=== PATIENT | male | born 1975 | race Caucasian/White ===

== ENCOUNTER 2018-03-19 07:35 | Inpatient (IN) | payer OTHER ==
[2018-03-19] VITALS (13 sets, daily range): BP systolic 126–186; BP diastolic 77–104
[~2018-03-19] VITALS: Ht 180.3 cm; Wt 118.0 kg
[2018-03-19] MEDS ORDERED: ondansetron/PF 4mg/2ml inj IV ONE (08:05)
[2018-03-19] MEDS: morphine 4 MG/ML inj SYRINge IV PRN ×2 (08:11→08:50)
[2018-03-19 08:35] LABS: BASOPHILS % (AUTO) 0.1 % (0-1); EOSINOPHILS # (AUTO) 0.1 X10'3 (0-0.9); HEMATOCRIT 41.4 % (42.0-52.0); HEMOGLOBIN 14.3 g/dl (14.0-17.9); LYMPHOCYTES # (AUTO) 1.1 X10'3 (1.1-4.8); LYMPHOCYTES % (AUTO) 13.2 % (21-51); MEAN CORPUSCULAR HEMOGLOBIN 29.9 PG (27.0-31.0); MEAN CORPUSCULAR HGB CONC 34.6 % (33.0-36.5); MEAN CORPUSCULAR VOLUME 86.4 FL (78-98); MEAN PLATELET VOLUME 8.1 FL (7.4-10.4); MONOCYTES # (AUTO) 0.3 X10'3 (0-0.9); MONOCYTES % (AUTO) 3.4 % (2-12); NEUTROPHILS # (AUTO) 6.9 X10'3 (1.8-7.7); NEUTROPHILS % (AUTO) 82.3 % (42-75); PLATELET COUNT 173 X10'3 (140-440); RED CELL DISTRIBUTION WIDTH 13.5 % (11.5-14.5); WHITE BLOOD COUNT 8.4 X10'3 (4.5-11.0)
[2018-03-19 08:53] LABS: CLARITY,URINE CLEAR (Clear); COLOR,URINE YELLOW (Yellow); GLUCOSE, URINE NEGATIVE (Neg); KETONES,URINE >=80 mg/dl (Neg); LEUKOCYTE ESTERASE ,URINE NEGATIVE (Neg); NITRITES, URINE NEGATIVE (Neg); OCCULT BLOOD,URINE NEGATIVE (Neg); PROTEIN,URINE TRACE mg/dl (Neg); UROBILINOGEN,URINE 0.2 E.U/dL (0.2-1.0)
[2018-03-19 08:58] LABS: UA COLLECTION TYPE VOIDED
[2018-03-19] MEDS ORDERED: LORazepam 2 mg/ml vial IV ONE (09:05)
[2018-03-19 09:10] LABS: ALANINE AMINOTRANSFERASE 30 U/L (12-78); ALBUMIN/GLOBULIN RATIO 1.3 (1.1-1.5); ALKALINE PHOSPHATASE 85 IU/L (46-116); ANION GAP 11 (8-16); ASPARTATE AMINO TRANSFERASE 17 U/L (10-37); BILIRUBIN,TOTAL 0.5 MG/DL (0.1-1.0); BLOOD UREA NITROGEN 18 MG/DL (7-18); BUN/CREATININE RATIO 19.6 (5.4-32.0); CHLORIDE 104 MMOL/L (99-107); CREATININE 0.92 MG/DL (0.60-1.10); GLUCOSE 192 MG/DL (70-104); LIPASE 60 U/L (73-393); POTASSIUM 3.5 MMOL/L (3.5-5.1); SODIUM 140 MMOL/L (135-145); TOTAL CARBON DIOXIDE 25.2 MMOL/L (24-32); TOTAL PROTEIN 7.2 G/DL (6.4-8.2); eGFR > 90 ML/MIN
[2018-03-19 09:14] LABS: MUCUS STRANDS MODERATE /LPF (Neg)
[2018-03-19 09:15] LABS: BACTERIA,URINE 1+ /HPF (Neg); RBC,URINE 0-2 /HPF (0-2); SQUAMOUS EPITHELIAL CELL,UR FEW /LPF (FEW); WBC,URINE 0-4 /HPF (0-4)
[2018-03-19] MEDS ORDERED: NO HOME MEDS (11:00)
[2018-03-19] MEDS ORDERED: HYDROcodone/acetaminophen 10/325mg tab PO PRN ×2 (11:25→20:25)
[2018-03-19] MEDS ORDERED: mag hydrox/Alum hydrox/simeth 30ml oral suspension PO PRN (11:25)
[2018-03-19] MEDS: dextrose 5%-1/2 normal saline 1,000 ML IV SCH ×2 (11:25→21:25)
[2018-03-19] MEDS ORDERED: acetaminophen 325mg tablet PO PRN (11:25)
[2018-03-19] MEDS ORDERED: morphine 4 MG/ML inj SYRINge IV PRN ×4 (11:25→17:55)
[2018-03-19] MEDS ORDERED: HYDROcodone/acetaminophen 5mg/325mg tablet PO PRN (11:25)
[2018-03-19] MEDS ORDERED: ondansetron/PF 4mg/2ml inj IV PRN ×3 (11:25→20:25)
[2018-03-19] MEDS ORDERED: magnesium hydroxide 30ml (MOM) UD suspension PO PRN (11:25)
[2018-03-19] MEDS ORDERED: normal saline 1000ML IV soln IVB ONE (11:25)
[2018-03-19 15:27] LABS: INR 0.9 INR; PARTIAL THROMBOPLASTIN TIME 24 SECONDS (22-32); PROTHROMBIN TIME 9.7 SECONDS (9.0-12.0)
[2018-03-19] MEDS ORDERED: BUPIVAcaine/PF 2.5mg/ml (0.25%) 10ml vial ONE (16:52)
[2018-03-19] MEDS ORDERED: ceFAZolin 1000mg inj ONE ×3 (16:52→18:30)
[2018-03-19] MEDS ORDERED: fentaNYL /PF 50mcg/ml 5ml ampule ONE (17:46)
[2018-03-19] MEDS ORDERED: midazolam 2 mg/2 ml injection ONE (17:46)
[2018-03-19] MEDS ORDERED: LIDOcaine 2% (20mg/ml) 5ml vial ONE (17:48)
[2018-03-19] MEDS ORDERED: glycopyrrolate 0.2mg/ml inj ONE (17:48)
[2018-03-19] MEDS ORDERED: ondansetron/PF 4mg/2ml inj ONE (17:48)
[2018-03-19] MEDS ORDERED: propofol inj 20 ML IV ONE (17:48)
[2018-03-19] MEDS ORDERED: dexamethasone sod phosphate 4mg/ml inj. ONE (17:48)
[2018-03-19] MEDS ORDERED: rocuronium 10mg/ml inj IV ONE ×2 (17:48→19:26)
[2018-03-19] MEDS ORDERED: neostigmine methylsulfate 1 MG/ML 10ml vial ONE (17:48)
[2018-03-19] MEDS ORDERED: ringers solution, lacted 1,000 ML IV SCH (17:51)
[2018-03-19] MEDS ORDERED: fentaNYL/PF 50MCG/1 ML 2ML syringe IV PRN ×2 (17:55)
[2018-03-19] MEDS ORDERED: labetalol 20mg/4ml (5mg/ml) syringe IV PRN (17:55)
[2018-03-19] MEDS ORDERED: hydrALAZINE 20mg/ml inj. IV PRN (17:55)
[2018-03-19] MEDS ORDERED: sevoflurane 250ml liquid IH ONE (18:08)
[2018-03-19] MEDS ORDERED: labetalol 5mg/ml 20ml inj. IV ONE (18:27)
[2018-03-19] MEDS ORDERED: clindamycin phosphate 150mg/ml inj. ONE (19:24)
[2018-03-19] MEDS ORDERED: gentamicin 40 MG/1 ML inj ONE (19:24)
[2018-03-19] MEDS: piperacillin/tazo 3.375gm/50ml 50 ML IV SCH (23:56)
[2018-03-20] VITALS: BP_SYST 128; BP_SYST 130; BP_DIAS 89; BP_DIAS 90
[2018-03-20 01:00] VITALS: BP 139/92
[2018-03-20 04:00] VITALS: BP 143/77
[2018-03-20] MEDS: dextrose 5%-1/2 normal saline 1,000 ML IV SCH ×2 (05:58→16:53)
[2018-03-20 06:46] LABS: ALBUMIN 3.3 G/DL (3.4-5.0); ANION GAP 5 (8-16); BLOOD UREA NITROGEN 12 MG/DL (7-18); BUN/CREATININE RATIO 16.2 (5.4-32.0); CALCIUM 8.5 MG/DL (8.5-10.1); CHLORIDE 104 MMOL/L (99-107); CREATININE 0.74 MG/DL (0.60-1.10); GLUCOSE 133 MG/DL (70-104); POTASSIUM 4.2 MMOL/L (3.5-5.1); SODIUM 137 MMOL/L (135-145); eGFR > 90 ML/MIN
[2018-03-20 06:47] LABS: BASOPHILS % (AUTO) 0 % (0-1); EOSINOPHILS # (AUTO) 0.1 X10'3 (0-0.9); EOSINOPHILS % (AUTO) 0.6 % (0-6); HEMATOCRIT 41.2 % (42.0-52.0); HEMOGLOBIN 14.3 g/dl (14.0-17.9); LYMPHOCYTES % (AUTO) 6.7 % (21-51); MEAN CORPUSCULAR HGB CONC 34.7 % (33.0-36.5); MEAN CORPUSCULAR VOLUME 86.6 FL (78-98); MEAN PLATELET VOLUME 8.3 FL (7.4-10.4); MONOCYTES # (AUTO) 0.8 X10'3 (0-0.9); MONOCYTES % (AUTO) 5.3 % (2-12); NEUTROPHILS # (AUTO) 13.3 X10'3 (1.8-7.7); NEUTROPHILS % (AUTO) 87.4 % (42-75); PLATELET COUNT 202 X10'3 (140-440); RED BLOOD COUNT 4.76 X10'6 (4.70-6.10); RED CELL DISTRIBUTION WIDTH 14.1 % (11.5-14.5); WHITE BLOOD COUNT 15.2 X10'3 (4.5-11.0)
[2018-03-20 07:32] VITALS: BP 163/82
[2018-03-20] MEDS: piperacillin/tazo 3.375gm/50ml 50 ML IV SCH ×2 (08:10→16:46)
[2018-03-20 12:00] VITALS: BP 143/80
[2018-03-20] MEDS: HYDROmorphone 1 mg/ml syringe IV PRN ×2 (13:59→19:19)
[2018-03-20 18:00] VITALS: BP 175/89
[2018-03-21] VITALS: BP 166/94
[2018-03-21] MEDS: HYDROmorphone 1 mg/ml syringe IV PRN ×2 (00:02→04:27)
[2018-03-21] MEDS: piperacillin/tazo 3.375gm/50ml 50 ML IV SCH ×3 (00:02→16:34)
[2018-03-21] MEDS: dextrose 5%-1/2 normal saline 1,000 ML IV SCH ×2 (04:27→14:09)
[2018-03-21 07:32] VITALS: BP 151/101
[2018-03-21] MEDS: enoxaparin 40mg/0.4ml syringe SUBCUT SCH (08:14)
[2018-03-21 10:53] LABS: BASOPHILS % (AUTO) 0.1 % (0-1); EOSINOPHILS % (AUTO) 0.1 % (0-6); HEMATOCRIT 43.4 % (42.0-52.0); HEMOGLOBIN 14.8 g/dl (14.0-17.9); LYMPHOCYTES # (AUTO) 1.2 X10'3 (1.1-4.8); LYMPHOCYTES % (AUTO) 8.9 % (21-51); MEAN CORPUSCULAR HEMOGLOBIN 29.7 PG (27.0-31.0); MEAN CORPUSCULAR HGB CONC 34.1 % (33.0-36.5); MEAN PLATELET VOLUME 8.5 FL (7.4-10.4); MONOCYTES % (AUTO) 7.6 % (2-12); NEUTROPHILS # (AUTO) 11.1 X10'3 (1.8-7.7); NEUTROPHILS % (AUTO) 83.3 % (42-75); PLATELET COUNT 202 X10'3 (140-440); RED BLOOD COUNT 4.98 X10'6 (4.70-6.10); RED CELL DISTRIBUTION WIDTH 13.9 % (11.5-14.5); WHITE BLOOD COUNT 13.4 X10'3 (4.5-11.0)
[2018-03-21 11:00] VITALS: BP 148/87
[2018-03-21 11:04] LABS: ALBUMIN 3.4 G/DL (3.4-5.0); ANION GAP 8 (8-16); BLOOD UREA NITROGEN 10 MG/DL (7-18); BUN/CREATININE RATIO 13.9 (5.4-32.0); CALCIUM 8.7 MG/DL (8.5-10.1); CHLORIDE 99 MMOL/L (99-107); CREATININE 0.72 MG/DL (0.60-1.10); GLUCOSE 133 MG/DL (70-104); POTASSIUM 3.4 MMOL/L (3.5-5.1); SODIUM 136 MMOL/L (135-145); TOTAL CARBON DIOXIDE 29.3 MMOL/L (24-32); eGFR > 90 ML/MIN
[2018-03-21] MEDS ORDERED: HYDROcodone/acetaminophen 10/325mg tab PO PRN (12:00)
[2018-03-21 13:39] LABS: HEMOGLOBIN A1C 5.9 % (4.5-6.2)
[2018-03-21 18:00] VITALS: BP 149/98
[2018-03-21] MEDS ORDERED: potassium Cl 20 mEq SR tablet PO PRN (19:25)
[2018-03-21] MEDS: potassium Cl 20 mEq SR tablet PO PRN (19:43)
[2018-03-22] VITALS: BP 155/98
[2018-03-22] MEDS: potassium Cl 20 mEq SR tablet PO PRN (00:13)
[2018-03-22] MEDS: piperacillin/tazo 3.375gm/50ml 50 ML IV SCH ×3 (00:16→16:42)
[2018-03-22] MEDS: dextrose 5%-1/2 normal saline 1,000 ML IV SCH (00:17)
[2018-03-22 05:49] LABS: BASOPHILS % (AUTO) 0.3 % (0-1); EOSINOPHILS # (AUTO) 0.2 X10'3 (0-0.9); EOSINOPHILS % (AUTO) 1.5 % (0-6); HEMATOCRIT 44.9 % (42.0-52.0); HEMOGLOBIN 15.6 g/dl (14.0-17.9); LYMPHOCYTES # (AUTO) 1.9 X10'3 (1.1-4.8); MEAN CORPUSCULAR HEMOGLOBIN 29.9 PG (27.0-31.0); MEAN CORPUSCULAR HGB CONC 34.7 % (33.0-36.5); MEAN CORPUSCULAR VOLUME 86.3 FL (78-98); MEAN PLATELET VOLUME 8.3 FL (7.4-10.4); MONOCYTES # (AUTO) 1.2 X10'3 (0-0.9); MONOCYTES % (AUTO) 8.9 % (2-12); NEUTROPHILS # (AUTO) 9.7 X10'3 (1.8-7.7); NEUTROPHILS % (AUTO) 74.3 % (42-75); PLATELET COUNT 212 X10'3 (140-440); RED CELL DISTRIBUTION WIDTH 13.6 % (11.5-14.5)
[2018-03-22 06:43] LABS: ALBUMIN 3.3 G/DL (3.4-5.0); ANION GAP 7 (8-16); BLOOD UREA NITROGEN 8 MG/DL (7-18); BUN/CREATININE RATIO 11.3 (5.4-32.0); CALCIUM 9.1 MG/DL (8.5-10.1); CHLORIDE 103 MMOL/L (99-107); CREATININE 0.71 MG/DL (0.60-1.10); GLUCOSE 128 MG/DL (70-104); MAGNESIUM 2.1 MG/DL (1.5-2.4); POTASSIUM 3.8 MMOL/L (3.5-5.1); SODIUM 137 MMOL/L (135-145); TOTAL CARBON DIOXIDE 26.9 MMOL/L (24-32); eGFR > 90 ML/MIN
[2018-03-22] MEDS: enoxaparin 40mg/0.4ml syringe SUBCUT SCH (07:49)
[2018-03-22 08:00] VITALS: BP 157/94
[2018-03-22] MEDS ORDERED: methylnaltrexone br 12mg/0.6ml inj***SubQ only SQ SCH (08:00)
[2018-03-22 12:10] VITALS: BP 158/96
[2018-03-22 19:05] VITALS: BP 143/91
[2018-03-22] MEDS: lactobacillus rhamnosus 10,000 MMU CELLS/CAPSULE PO SCH (19:35)
[2018-03-22 23:25] VITALS: BP 145/90
[2018-03-23 04:36] LABS: BASOPHILS % (AUTO) 0.2 % (0-1); EOSINOPHILS # (AUTO) 0.3 X10'3 (0-0.9); EOSINOPHILS % (AUTO) 2.8 % (0-6); HEMATOCRIT 42.6 % (42.0-52.0); HEMOGLOBIN 14.5 g/dl (14.0-17.9); MEAN CORPUSCULAR HEMOGLOBIN 29.5 PG (27.0-31.0); MEAN CORPUSCULAR VOLUME 86.7 FL (78-98); MEAN PLATELET VOLUME 8.1 FL (7.4-10.4); MONOCYTES % (AUTO) 9.5 % (2-12); NEUTROPHILS # (AUTO) 7.4 X10'3 (1.8-7.7); NEUTROPHILS % (AUTO) 68.5 % (42-75); PLATELET COUNT 212 X10'3 (140-440); RED BLOOD COUNT 4.91 X10'6 (4.70-6.10); RED CELL DISTRIBUTION WIDTH 13.5 % (11.5-14.5); WHITE BLOOD COUNT 10.7 X10'3 (4.5-11.0)
[2018-03-23 04:52] LABS: ALBUMIN 3.2 G/DL (3.4-5.0); ANION GAP 4 (8-16); BLOOD UREA NITROGEN 14 MG/DL (7-18); BUN/CREATININE RATIO 16.7 (5.4-32.0); CALCIUM 9.2 MG/DL (8.5-10.1); CHLORIDE 103 MMOL/L (99-107); CREATININE 0.84 MG/DL (0.60-1.10); GLUCOSE 116 MG/DL (70-104); MAGNESIUM 2.3 MG/DL (1.5-2.4); POTASSIUM 3.9 MMOL/L (3.5-5.1); SODIUM 136 MMOL/L (135-145); TOTAL CARBON DIOXIDE 28.9 MMOL/L (24-32); eGFR > 90 ML/MIN
[2018-03-23 07:19] VITALS: BP 143/97
[2018-03-23] MEDS: piperacillin/tazo 3.375gm/50ml 50 ML IV SCH ×2 (07:31)
[2018-03-23] MEDS: enoxaparin 40mg/0.4ml syringe SUBCUT SCH (07:32)
[2018-03-23] MEDS: lactobacillus rhamnosus 10,000 MMU CELLS/CAPSULE PO SCH (07:32)
== END 2018-03-23 12:05 | disposition home or self-care (01) | DRG 329 ==
LOC: ER 07:36 → ED HOLD 11:25 → SUR 3N 12:07 → PAS IN 17:39 → SUR 3N 23:01
PROVIDERS: ADMIT Internal Medicine; ATTEND Internal Medicine
PROC: 0WQF0ZZ Repair Abdominal Wall, Open Approach (ICD-10-PCS; 2018-03-19)
PROC: 0WJF4ZZ Inspection of Abdominal Wall, Percutaneous Endoscopic Approach (ICD-10-PCS; 2018-03-19)
PROC: 0DB80ZZ Excision of Small Intestine, Open Approach (ICD-10-PCS; principal; 2018-03-19 18:13)
DX: K42.0 Umbilical hernia with obstruction, without gangrene (principal); K55.029 Acute infarction of small intestine, extent unspecified; K56.7 Ileus, unspecified; E11.65 Type 2 diabetes mellitus with hyperglycemia; F12.90 Cannabis use, unspecified, uncomplicated; K40.20 Bilateral inguinal hernia, without obstruction or gangrene, not specified as recurrent; Z87.891 Personal history of nicotine dependence; Z53.31 Laparoscopic surgical procedure converted to open procedure
CPT/HCPCS: 96374; 96375; 99291; Z7506; 36415; 74176; 80048; 80053; 81001; 83036; 83690; 83735; 85025; 85610; 85730; 87070; 93005; A6266; A6449; A7000; C1758; J0690; J1100; J1170; J1580; J1650; J2001; J2060; J2250; J2270; J2405; J2543; J2704; J2710; J3010; J3490; J7030; J7120